=== PATIENT | male | born 1955 | race Caucasian/White ===

== ENCOUNTER 2019-09-25 17:09 | Observation (INO) | payer MEDICARE, OTHER ==
[~2019-09-25] VITALS: Ht 182.9 cm; Wt 92.8 kg
[2019-09-25] MEDS ORDERED: ASPIRIN CHEWABLE 81 MG TABLET. ONE (17:17)
[2019-09-25] MEDS ORDERED: ASPIRIN 325 MG TABLET PO ONE (17:30)
[2019-09-25] MEDS ORDERED: ASPIRIN CHEWABLE 81 MG TABLET. PO ONE (17:30)
--- NOTE | 2019-09-25 17:30 | EKG ---
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
--- NOTE | 2019-09-25 17:50 | PHYS DOC ---
Past History Past Medical History: CVA, GERD, High Cholesterol, Hypertension, Stroke, Other Past Surgical History: Other Additional Past Surgical Histo: L ankle Alcohol Use: None Drug Use: None General Adult EDM: Chief Complaint: CHEST PAIN HPI: HPI: Patient is a 64-year-old male who was brought here from [facility]way due to substernal chest pain that radiated to left shoulder. Symptoms started about 30 minutes prior to arrival. EMS said the patient was given 1 dose of nitroglycerin at the half-way and the pain improved. Patient was not given any more nitroglycerin by EMS, no aspirin was given by EMS. Patient had no history of previous heart disease, no history of diabetes. Patient has history of stroke that affected his left side, so he normally walks around with a walker or in a wheelchair. Patient denies any history of diabetes. Patient denies any cough or fever. Patient had no history of coronary disease. Patient denies being exposed to anybody who tested positive for COVID-19. Patient said his family doctor is Dr. Morgan. Review of Systems: Review of Systems: Constitutional: Denies fever or chills Eyes: Denies change in visual acuity HENT: Denies nasal congestion or sore throat Respiratory: Denies cough or shortness of breath Cardiovascular: Positive for chest pain, no edema. GI: Denies abdominal pain, nausea, vomiting, bloody stools or diarrhea : Denies dysuria Musculoskeletal: Denies back pain or joint pain Integument: Denies rash Neurologic: Denies headache, focal weakness or sensory changes Endocrine: Denies polyuria or polydipsia Lymphatic: Denies swollen glands Psychiatric: Denies depression or anxiety Heart Score: Risk Factors: Risk Factors: DM, Current or recent (<one month) smoker, HTN, HLP, family history of CAD, obesity. Risk Scores: Score 0 - 3: 2.5% MACE over next 6 weeks - Discharge Home Score 4 - 6: 20.3% MACE over next 6 weeks - Admit for Clinical Observation Score 7 - 10: 72.7% MACE over next 6 weeks - Early Invasive Strategies Current Medications: Current Meds: Current Medications Medications (Trade) Dose Ordered Sig/Cordelia Start Time Stop Time Status Last Admin Dose Admin Aspirin (Aspirin Chewable) 324 mg 1X ONCE 09/25/19 17:30 09/25/19 17:39 DC 09/25/19 17:24 324 MG Aspirin (Sri Aspirin) 325 mg 1X ONCE 09/25/19 17:30 09/25/19 17:39 DC Allergies: Allergies: Allergies Coded Allergies Type Severity Reaction Last Updated Verified No Known Drug Allergies 06/19/16 No Physical Exam: PE: Constitutional: Well developed, well nourished, no acute distress, non-toxic appearance. [] HENT: Normocephalic, atraumatic, bilateral external ears normal, oropharynx moist, no oral exudates, nose normal. [] Eyes: PERRLA, EOMI, conjunctiva normal, no discharge. [] Neck: Normal range of motion, no tenderness, supple, no stridor. [] Cardiovascular:Heart rate regular rhythm, no murmur, no pedal edema Lungs & Thorax: Bilateral breath sounds clear to auscultation [] Abdomen: Bowel sounds normal, soft, no tenderness, no masses, no pulsatile masses. [] Skin: Warm, dry, no erythema, no rash. [] Back: No tenderness, no CVA tenderness. [] Extremities: No tenderness, no cyanosis, no clubbing, ROM intact, no edema. [] Neurologic: Alert and oriented X 3, left leg is in a plastic cast, normal speech. Psychologic: Affect normal, judgement normal, mood normal. [] Current Patient Data: Vital Signs: Vital Signs Date Time Temp Pulse Resp B/P (MAP) Pulse Ox O2 Delivery O2 Flow Rate FiO2 09/25/19 17:10 98.2 65 14 141/83 (102) 98 Room Air EKG: EKG: EKG was done 1720, heart rate of 65 bpm, normal sinus rhythm, no ST segment elevation, EKG was read by this physician. Radiology/Procedures: Radiology/Procedures: [][address] [address] IMAGING REPORT Signed PATIENT: LORENA SOLIS: [id number] : 1955 LOCATION: ER AGE: 64 SEX: M EXAM STATUS: REG ER ORD. PHYSICIAN: BJ JACOBS DO REASON: left sided chest pain, hx several strokes, quit smoking PROCEDURE: PORTABLE CHEST 1V PORTABLE CHEST 1V Clinical indications: Left-sided chest pain. History of several strokes. COMPARISON: June 19, 2016. Findings: No acute lung infiltrate or pleural effusion or pulmonary edema or lung mass or pneumothorax is seen. The heart size, pulmonary vasculature, mediastinum and both giovanni are stable given AP magnification. Impression: No acute radiographic abnormality is seen. Electronically signed by: Don Rao MD (09/25/2019 6:14 PM) [facility] [place] DICTATED AND SIGNED BY: DON RAO MD DATE: 09/25/191813 CC: HARJEET CLEVELAND DO; BJ JACOBS DO ~ Course & Med Decision Making: Course & Med Decision Making Pertinent Labs and Imaging studies reviewed. (See chart for details) Patient is a 64-year-old male who was brought here by EMS for evaluation due to chest pain. Patient is a long-term resident at the [facility]way facility. Chest x-ray and lab works did not show any acute problem yet, will admit for observation Dragon Disclaimer: [place] Disclaimer: This electronic medical record was generated, in whole or in part, using a voice recognition dictation system. Departure Departure: Impression: Primary Impression: Chest pain Disposition: ADMITTED INPATIENT Admitting Physician: Bj Morgan Condition: STABLE Referrals: HARJEET CLEVELAND DO (PCP) COVID-19 Assessment COVID-19 Patient Risks: Age 65 or older: No Sign of co-morbidity: Yes Exp to person + for COVID: No Exp to PUI: No Travel from affected area: No Lower respiratory symptoms: No Fever: No Other: No PPE Use: Full PPE with N95 mask or PAPR: Yes BJ JACOBS DO September 25, 2019 17:50
[2019-09-25 17:55] LABS: BASO % 1 % (0-3); CALCIUM 8.8 mg/dL (8.5-10.1); CREATININE 0.9 mg/dL (0.7-1.3); EOS # 0.2 x10^3/uL (0.0-0.7); EOS % 2 % (0-3); GFR 85.5; HEMOGLOBIN 15.8 g/dL (13.0-17.5); LYMPH # 1.9 x10^3/uL (1.0-4.8); LYMPH % 30 % (24-48); MEAN CORPUSCULAR HEMOGLOBIN 30 pg (25-35); MEAN CORPUSCULAR HGB CONC 34 g/dL (31-37); MEAN CORPUSCULAR VOLUME 90 fL (79-100); MONO # 0.6 x10^3/uL (0.0-1.1); MONO % 10 % (0-9); NEUT # 3.7 x10^3uL (1.8-7.7); NEUT % 58 % (31-73); PLATELET COUNT 154 x10^3/uL (140-400); POTASSIUM 4.2 mmol/L (3.5-5.1); RED BLOOD COUNT 5.24 x10^6/uL (4.30-5.70); RED CELL DISTRIBUTION WIDTH 13.2 % (11.5-14.5); WHITE BLOOD COUNT 6.5 x10^3/uL (4.0-11.0)
[2019-09-25 18:08] LABS: ALBUMIN 3.3 g/dL (3.4-5.0); ALBUMIN/GLOBULIN RATIO 0.9 (1.0-1.7); MAGNESIUM 1.8 mg/dL (1.8-2.4); TOTAL BILIRUBIN 0.3 mg/dL (0.2-1.0); TOTAL PROTEIN 6.9 g/dL (6.4-8.2)
--- NOTE | 2019-09-25 18:17 | RAD ---
PORTABLE CHEST 1V Clinical indications: Left-sided chest pain. History of several strokes. COMPARISON: June 19, 2016. Findings: No acute lung infiltrate or pleural effusion or pulmonary edema or lung mass or pneumothorax is seen. The heart size, pulmonary vasculature, mediastinum and both giovanni are stable given AP magnification. Impression: No acute radiographic abnormality is seen. Electronically signed by: Gigi Rao MD (09/25/2019 6:14 PM) [facility] [place]
[2019-09-25 19:31] VITALS: BP 144/76
--- NOTE | 2019-09-25 20:00 | NUR ---
The patient, LORENA SOLIS, 64 y/o, M admitted by BJ MILAN MD, was given written information regarding hospital policies, unit procedures and contact persons. Valuables were checked and documented. pts vitals obtained and stable. pt monitored on telemetry. pt has no complaints chest pain or shortness of air. will continue to monitor.
[2019-09-25] MEDS ORDERED: NITROGLYCERIN SUBLINGUAL 0.4 MG BOTTLE OF 25. SL PRN (21:00)
[2019-09-25] MEDS ORDERED: ZOLPIDEM 5 MG TABLET. PO PRN (21:00)
[2019-09-25] MEDS ORDERED: SIMV10TA15 PO (21:17)
[2019-09-25 22:03] VITALS: BP 104/59
[2019-09-25] MEDS ORDERED: ACET325T21 PO (22:55)
[2019-09-25] MEDS ORDERED: ASPI-630 PO (22:55)
[2019-09-25] MEDS ORDERED: DOCU100C28 PO (22:55)
[2019-09-25] MEDS ORDERED: FLUT9.9S16 NS (22:55)
[2019-09-25] MEDS ORDERED: CARB15DR3 EACHEYE (23:00)
[2019-09-25] MEDS ORDERED: LACT1CAP6 PO (23:00)
[2019-09-25] MEDS ORDERED: SERT100T PO (23:00)
[2019-09-25] MEDS ORDERED: PROP15DR40 EACHEYE (23:00)
[2019-09-25] MEDS ORDERED: MUCINEX (23:00)
[2019-09-25] MEDS ORDERED: TRAM50TA PO (23:00)
[2019-09-26 05:17] VITALS: BP 98/63
--- NOTE | 2019-09-26 07:56 | NUR ---
NURSING NOTE CONSULT CARDIO CONSULT CALLED TO YONNY, WILL SEE PT THIS AFTERNOON. EHSAN GARCIA.
[2019-09-26] MEDS ORDERED: ACETAMINOPHEN 325 MG TABLET PO PRN (08:00)
[2019-09-26] MEDS ORDERED: DOCUSATE SODIUM 100 MG CAPSULE PO PRN (08:00)
[2019-09-26] MEDS ORDERED: traMADol 50 MG TABLET PO PRN (08:00)
[2019-09-26] MEDS ORDERED: NON FORMULARY ITEM (Propylene Glycol/Peg 400 (Systane 0.3-0.4% Eye Drops) 1 DROP) EACHEYE SCH (09:00)
[2019-09-26] MEDS ORDERED: ASPIRIN CHEWABLE 81 MG TABLET. PO SCH (09:00)
[2019-09-26] MEDS ORDERED: SERTRALINE 100 MG TABLET. PO SCH (09:00)
[2019-09-26] MEDS ORDERED: LACTOBACILLUS RHAMNOSUS GG 1 CAPSULE. PO SCH (09:00)
[2019-09-26] MEDS ORDERED: POLYVINYL ALCOHOL/POVIDONE/PF OPHTH SOLUTION DROPERETTE. OU SCH (09:00)
[2019-09-26] MEDS ORDERED: FLUTICASONE 50MCG/NASAL SPRAY 16GM BOTTLE. NS SCH (09:00)
[2019-09-26 11:14] VITALS: BP 109/69
[2019-09-26 15:49] VITALS: BP 132/83
--- NOTE | 2019-09-26 16:45 | NUR ---
NURSING NOTE DISCHARGE PT DISCHARGED BACK TO [facility] VIA [facility]. REPORT CALLED TO ANNA. WRITTEN AND VERBAL DISCHARGE INSTRUCTIONS GIVEN TO PT. COPY OF CHART SENT WITH PT. NO COMPLICATIONS EHSAN GARCIA.
[2019-09-26 20:24] LABS: THYROID STIM HORMONE (TSH) 1.128 uIU/mL (0.358-3.740)
[2019-09-26] MEDS ORDERED: SIMVASTATIN 10 MG TABLET PO SCH (21:00)
--- NOTE | 2019-10-05 23:48 | HP ---
ADMIT DATE: 09/25/2019 SHORT STAY HISTORY AND PHYSICAL AND DISCHARGE SUMMARY HISTORY OF PRESENT ILLNESS: A 64-year-old male came in through the Emergency Room, apparently as they brought in from a nursing facility where the patient was having substernal chest pain radiating to his left shoulder 30 minutes prior to arrival. The patient was given a dose of nitroglycerin which improved it and the patient has a history of stroke that affected his left side, walks with a walker. In any case, the patient was admitted for further evaluation for rule out GA protocol. The patient also was admitted for rule out GA protocol. PAST MEDICAL HISTORY: Includes that of stroke, angina, ____ dysphagia. FAMILY HISTORY: Father had heart disease and hypertension and mother with a history of stroke as well as the father. MEDICATIONS: Reconciled in the usual fashion including that of Zocor 10, aspirin 81, ____, Zoloft 100, Flonase, ____, Systane, probiotic and docusate sodium. ALLERGIES: No known allergies. SOCIAL HISTORY: The patient with recent history of smoking and drinking, lives at the assisted. REVIEW OF SYSTEMS: The patient outside of his chest pain, denies shortness of breath. Denies any nausea, vomiting, melena, hematochezia or hematemesis. Denies diaphoresis, abdominal pain and neurologically baseline with left-sided hemiparesis. PHYSICAL EXAMINATION: GENERAL: This is a very pleasant gentleman in no apparent distress. VITAL SIGNS: Blood pressure 140/80, respiratory rate 14, pulse 65, afebrile. HEENT: The patient's head was atraumatic, normocephalic. Eyes: PERRLA without jaundice. The mouth and throat were normal. NECK: Supple without JVD or thyromegaly. LUNGS: Diminished. Poor movement of air but basically clear. CARDIOVASCULAR: Regular sinus rhythm, S1, S2. ABDOMEN: Soft, nontender, no rebound or guarding. Positive bowel sounds. No hepatosplenomegaly was noted. EXTREMITIES: No clubbing, cyanosis, nor edema. NEUROLOGIC: The patient is alert. ____ weakness on the left side is noted. He has history of CVA, otherwise appeared to be appropriate ____. DIAGNOSTIC DATA: The patient's EKG was unremarkable. The patient's chest x-ray was unremarkable. The patient's CBC was basically unremarkable. The patient's cardiac enzymes were unremarkable. Cholesterol basically within range. IMPRESSION: Chest pain, history of angina, history of right-sided cerebrovascular accident with left-sided hemiparesis. The patient was admitted. Rule out myocardial infarction protocol was negative. The patient will follow up with Cardiology as an outpatient and make further evaluation on him as indicated. He will be on a heart healthy diet. He was sent back to the nursing facility for further evaluation and rehab there per his previous protocol at that facility. He was transferred back to [facility]. JB MILAN MD DR: LESIA/bianca JOB#: [id number] / [id number]
--- NOTE | 2019-10-06 09:16 | SSS ---
ADMIT DATE: 09/25/2019 SHORT STAY HISTORY AND PHYSICAL AND DISCHARGE SUMMARY HISTORY OF PRESENT ILLNESS: A 64-year-old male came in through the Emergency Room, apparently as they brought in from a nursing facility where the patient was having substernal chest pain radiating to his left shoulder 30 minutes prior to arrival. The patient was given a dose of nitroglycerin which improved it and the patient has a history of stroke that affected his left side, walks with a walker. In any case, the patient was admitted for further evaluation for rule out OR protocol. The patient also was admitted for rule out OR protocol. PAST MEDICAL HISTORY: Includes that of stroke, angina, ____ dysphagia. FAMILY HISTORY: Father had heart disease and hypertension and mother with a history of stroke as well as the father. MEDICATIONS: Reconciled in the usual fashion including that of Zocor 10, aspirin 81, ____, Zoloft 100, Flonase, ____, Systane, probiotic and docusate sodium. ALLERGIES: No known allergies. SOCIAL HISTORY: The patient with recent history of smoking and drinking, lives at the half-way. REVIEW OF SYSTEMS: The patient outside of his chest pain, denies shortness of breath. Denies any nausea, vomiting, melena, hematochezia or hematemesis. Denies diaphoresis, abdominal pain and neurologically baseline with left-sided hemiparesis. PHYSICAL EXAMINATION: GENERAL: This is a very pleasant gentleman in no apparent distress. VITAL SIGNS: Blood pressure 140/80, respiratory rate 14, pulse 65, afebrile. HEENT: The patient's head was atraumatic, normocephalic. Eyes: PERRLA without jaundice. The mouth and throat were normal. NECK: Supple without JVD or thyromegaly. LUNGS: Diminished. Poor movement of air but basically clear. CARDIOVASCULAR: Regular sinus rhythm, S1, S2. ABDOMEN: Soft, nontender, no rebound or guarding. Positive bowel sounds. No hepatosplenomegaly was noted. EXTREMITIES: No clubbing, cyanosis, nor edema. NEUROLOGIC: The patient is alert. ____ weakness on the left side is noted. He has history of CVA, otherwise appeared to be appropriate ____. DIAGNOSTIC DATA: The patient's EKG was unremarkable. The patient's chest x-ray was unremarkable. The patient's CBC was basically unremarkable. The patient's cardiac enzymes were unremarkable. Cholesterol basically within range. IMPRESSION: Chest pain, history of angina, history of right-sided cerebrovascular accident with left-sided hemiparesis. The patient was admitted. Rule out myocardial infarction protocol was negative. The patient will follow up with Cardiology as an outpatient and make further evaluation on him as indicated. He will be on a heart healthy diet. He was sent back to the nursing facility for further evaluation and rehab there per his previous protocol at that facility. He was transferred back to [facility]. BJ MILAN MD DR: LESIA/bianca JOB#: [id number] / [id number]
== END 2019-09-26 16:46 | disposition home or self-care (01) ==
LOC: ER 17:09 → 1 SOUTH 18:06 → ER 19:04
PROVIDERS: ADMIT Family Medicine; ATTEND Family Medicine
DX: R07.9 Chest pain, unspecified (principal); E78.00 Pure hypercholesterolemia, unspecified; I10 Essential (primary) hypertension; Z86.73 Personal history of transient ischemic attack (TIA), and cerebral infarction without residual deficits; K21.9 Gastro-esophageal reflux disease without esophagitis
CPT/HCPCS: 36415; 71045; 80053; 80061; 83690; 83735; 83880; 84443; 84484; 85025; 85610; 85730; 93005; 99285; G0378; G0379